=== PATIENT | female | born 1995 | race Caucasian/White ===

== ENCOUNTER → 2020-02-11 | Outpatient (CLI) | payer BC | LOC: M.LAB 08:13 | DX: Z11.59 Encounter for screening for other viral diseases (principal); Z20.828 Contact with and (suspected) exposure to other viral communicable diseases ==

== ENCOUNTER → 2020-02-20 | Outpatient (CLI) | payer BC | LOC: M.LAB 09:09 | PROVIDERS: ATTEND Personal Emergency Response Attendant | DX: Z11.59 Encounter for screening for other viral diseases (principal) ==